=== PATIENT | female | born 1970 | race Two or more races ===

== ENCOUNTER 2023-04-10 10:17 | Emergency (ER) | payer MEDICAID ==
[~2023-04-10] VITALS: Ht 157.5 cm; Wt 70.0 kg
[2023-04-10] MEDS ORDERED: CYCL5TAB MT ×3 (10:59→11:00)
[2023-04-10] MEDS ORDERED: IBUP-2029 MT ×3 (10:59→11:00)
[2023-04-10] MEDS ORDERED: KETOROLAC 60MG/2ML VIAL IM ONE (11:00)
[2023-04-10 11:21] VITALS: BP 124/85
== END 2023-04-10 11:23 | disposition home or self-care (01) ==
LOC: ER 10:28
DX: S16.1XXA Strain of muscle, fascia and tendon at neck level, initial encounter (principal); V49.50XA Passenger injured in collision with unspecified motor vehicles in traffic accident, initial encounter; Y93.89 Activity, other specified; Y92.89 Other specified places as the place of occurrence of the external cause; Y99.8 Other external cause status
CPT/HCPCS: 96372; 99283; J1885